=== PATIENT | male | born 1955 | race Caucasian/White ===

== ENCOUNTER → 2023-06-19 06:25 | Day surgery (SDC) | payer MEDICARE, BC, SELFPAY | LOC: GI 06:25 | PROVIDERS: ATTENDING PHYSICIAN Internal Medicine | DX: Z12.11 Encounter for screening for malignant neoplasm of colon (principal); K57.30 Diverticulosis of large intestine without perforation or abscess without bleeding; K56.2 Volvulus; N40.0 Benign prostatic hyperplasia without lower urinary tract symptoms; Z86.010 Personal history of colon polyps | CPT/HCPCS: G0105 ==

== ENCOUNTER → 2024-05-13 08:15 | Outpatient (REF) | payer MEDICARE, SELFPAY | LOC: CLAB 08:15 | PROVIDERS: ATTENDING PHYSICIAN Surgery | DX: D17.1 Benign lipomatous neoplasm of skin and subcutaneous tissue of trunk (principal) | CPT/HCPCS: 88304 ==